=== PATIENT | female | born 1990 | race Caucasian/White ===

== ENCOUNTER 2025-03-24 00:48 | Emergency (ER) | payer SELFPAY ==
[~2025-03-24] VITALS: Ht 149.9 cm; Wt 55.0 kg
[2025-03-24 00:55] VITALS: O2SAT 98
[2025-03-24 01:26] VITALS: TEMP 36.8
[2025-03-24] MEDS: KETOROLAC 15MG/ML VIAL IM ONE (02:23)
[2025-03-24] MEDS ORDERED: NAPR-1176 MT (03:58)
[2025-03-24 04:21] VITALS: BP 158/88; PULSE 86; RESP 18; O2SAT 99
== END 2025-03-24 04:22 | disposition home or self-care (01) ==
LOC: ER 00:48
DX: S62.231A Other displaced fracture of base of first metacarpal bone, right hand, initial encounter for closed fracture (principal); E11.9 Type 2 diabetes mellitus without complications; Z79.1 Long term (current) use of non-steroidal anti-inflammatories (NSAID); X58.XXXA Exposure to other specified factors, initial encounter; Y93.89 Activity, other specified; Y92.410 Unspecified street and highway as the place of occurrence of the external cause; Y99.8 Other external cause status
CPT/HCPCS: 81025; 73110; 29125; 96372; 99283; J1885; Z7610; A6449